=== PATIENT | male | born 1975 | race Native Hawaiian/Other Pacific Islander ===

== ENCOUNTER 2018-07-04 13:55 | Observation (INO) | payer MEDICAID ==
--- NOTE | 2018-07-04 14:34 | C.PDOC ---
History Of Present Illness 42 y/o male presents to ED requesting detox from heroin. States last use was last night intravenously. He denies any physical complaints at this time. Time Seen by Provider: 07/04/18 14:13 Chief Complaint (Nursing): Substance Abuse History Per: Patient History/Exam Limitations: no limitations Onset/Duration Of Symptoms: Days Current Symptoms Are (Timing): Still Present Past Medical History Reviewed: Historical Data, Nursing Documentation, Vital Signs Vital Signs: Last Vital Signs Temp 99.1 F 07/04/18 13:59 Pulse 88 07/04/18 13:59 Resp 20 07/04/18 13:59 BP 107/70 07/04/18 13:59 Pulse Ox 97 07/04/18 13:59 Primary Care Provider: Mel Gordon - Medical History PMH: HIV (about 10 years ago), Schizophrenia Denies: Diabetes, Hepatitis, HTN, Seizures, Sexually Transmitted Disease Family History: States: No Known Family Hx - Social History Hx Alcohol Use: No Hx Substance Use: Yes (Heroin) Review Of Systems Constitutional: Negative for: Fever, Chills Gastrointestinal: Negative for: Vomiting Psych: Positive for: Other (heroin use). Negative for: Psychosis, Suicidal ideation Physical Exam - Physical Exam Appears: Non-toxic, No Acute Distress, Unkempt Skin: Warm, Dry Head: Normacephalic Eye(s): bilateral: Normal Inspection Oral Mucosa: Moist Neck: Supple Cardiovascular: Rhythm Regular, No Murmur Respiratory: Normal Breath Sounds, No Rales, No Rhonchi, No Wheezing Extremity: Other (track crow to left forearm) Extremity: Bilateral: Normal ROM Neurological/Psych: Oriented x3, Normal Speech ED Course And Treatment - Laboratory Results Result Diagrams: 07/04/18 14:51 07/04/18 14:51 O2 Sat by Pulse Oximetry: 97 (RA) Pulse Ox Interpretation: Normal Medical Decision Making Medical Decision Making: Impression: Heroin abuse, request detox Plan: --Labs --UA Progress: All labs reviewed and unremarkable. UDS +opiates. 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 - Scribe Statement The provider has reviewed the documentation as recorded by the Scribe Kaice Obando All medical record entries made by the Adrienneibe were at my direction and personally dictated by me. I have reviewed the chart and agree that the record accurately reflects my personal performance of the history, physical exam, medical decision making, and the department course for this patient. I have also personally directed, reviewed, and agree with the discharge instructions and disposition. Decision To Admit - Pt Status Changed To: Hospital Disposition Of: Observation - . Bed Request Type: Detox Admitting Physician: Derrek Lucas Patient Diagnosis: Schizophrenia, Opiate abuse, continuous
[2018-07-04 14:57] LABS: BASO % 0.5 % (0.0-2.0); EOS # 0.1 K/uL (0.0-0.7); EOS % 2.3 % (0.0-4.0); HEMOGLOBIN 13.8 g/dL (12.0-18.0); LYMPH # 2.1 K/uL (1.0-4.3); LYMPH % 32.1 % (20.0-40.0); MEAN CELL VOLUME 88.3 fL (80.0-94.0); MEAN CORPUSCULAR HEMOGLOBIN 31.3 pg (27.0-31.0); MEAN CORPUSCULAR HGB CONC 35.4 g/dL (33.0-37.0); MEAN PLATELET VOLUME 7.7 fL (7.2-11.7); MONO # 0.6 K/uL (0.0-0.8); NEUT # 3.6 K/uL (1.8-7.0); NEUT % 56.1 % (50.0-75.0); RBC 4.41 Mil/uL (4.40-5.90); RED CELL DISTRIBUTION WIDTH 13.3 % (11.5-14.5); WHITE BLOOD COUNT 6.5 K/uL (4.8-10.8)
[2018-07-04 15:10] LABS: URINE BILIRUBIN NEGATIVE (NEGATIVE); URINE BLOOD NEGATIVE (NEGATIVE); URINE CLARITY Clear (Clear); URINE COLOR Yellow (YELLOW); URINE GLUCOSE (UA) NORMAL (Normal); URINE LEUKOCYTE ESTERASE TRACE Leu/uL (Negative); URINE PROTEIN NEGATIVE (NEGATIVE)
[2018-07-04 15:30] LABS: BLOOD UREA NITROGEN 16 mg/dL (9-20)
[2018-07-04 15:31] LABS: ALB/GLOB RATIO 1.4 (1.0-2.1); ALBUMIN 4.3 g/dL (3.5-5.0); ALT/SGPT 28 U/L (21-72); AST/SGOT 39 U/L (17-59); CALCIUM 9.7 mg/dl (8.6-10.4); GFR NON-AFRICAN AMERICAN > 60
[2018-07-04 15:32] LABS: BARBITURATES, UR NEGATIVE (NEGATIVE); BENZODIAZEPINES, UR NEGATIVE (NEGATIVE); OPIATES, UR POSITIVE (NEGATIVE); PHENCYCLIDINE, UR NEGATIVE (NEGATIVE)
[2018-07-04 18:19] VITALS: RESP 18
[2018-07-04] MEDS ORDERED: Benzocaine/Menthol (Cepacol) Lozenge PO PRN (18:32)
[2018-07-04] MEDS ORDERED: Aluminum Hydroxide/Magnesium Hydroxide Susp (30 mL) PO PRN (18:32)
--- NOTE | 2018-07-04 19:06 | PCM.BM ---
Treatment Plan Problems - Problems identified on initial assessmt Denial Date Initiated: 07/04/18 Time Initiated: 19:05 Assessment reference: NA Status: Active Defensive Coping Date Initiated: 07/04/18 Time Initiated: 19:05 Assessment reference: NA Status: Active Hopelessnes Date Initiated: 07/04/18 Time Initiated: 19:06 Assessment reference: NA Status: Active Treatment assets and liabiliti Patient Assests: cooperative, negotiates basic needs Patient Liabilities: substance abuse - Milieu Protocol Maintain good personal hygiene: daily Encourage regular showers, daily Remind patient to perform daily oral care, daily Assist patient to perform ADL's Conduct patient checks and document Observation sheet: Q15 minutes Maintain personal safety: every shift Educate patient to report safety concerns to staff, every shift Monitor environment for contraband/sharps Medication safety: Monitor for expected outcome, potential side effects: every shift, Assess barriers to learning: every shift, Assess readiness for medication education: every shift
[2018-07-05 05:03] VITALS: BP 123/71; PULSE 96; TEMP 97.8; O2SAT 95
--- NOTE | 2018-07-05 07:39 | PCM.PSYCH ---
Initial Psychiatric Evaluation - Initial Psychiatric Evaluation Type of Admission: Voluntary Legal Status: Capacity Chief Complaint (in patient's own words): I came here to get help. History of Present Illness and Precipitating Events: Pt is a 42 year old male self referred to [facility] seeking heroin detox. Pt reports his last use was today at 4am with daily use of 6-10 bags IV. Pt denies current withdrawal symptoms stating it will take "a couple of hours". Pt reports hx of HIV and Hep C and psychiatric hx of schizophrenia. Pt reports compliance with medication. Pt appears to be paranoid and a poor historian. Pt reports poor sleep roughly 6 hours a night and states he at times does have appetite disturbance. Pt denies any current S/H/Is. Pt denies hx of same. Pt appears to be minimizing his use and psychiatric symptoms. Pt's hygiene appears to be poor. Hands are very soiled and was asked to go to the restroom to wash hands. Current Medications: Active Medications Generic Name Dose Route Start Last Admin Trade Name Freq PRN Reason Stop Dose Admin Abacavir/Lamivudine 1 tab 07/05/18 10:00 Epzicom PO DAILY GETACHEW Protocol Acetaminophen 650 mg 07/04/18 18:32 Tylenol 325mg Tab PO Q4H PRN Fever greater than 101 F Al Hydrox/Mg Hydrox/Simethicone 30 ml 07/04/18 18:32 Maalox 30 Ml PO TID PRN Indigestion / Heartburn Benzocaine/Menthol 1 jorje 07/04/18 18:32 Cepacol Sore Throat PO QID PRN Sore Throat Benztropine Mesylate 0.5 mg 07/04/18 18:45 07/04/18 21:24 Cogentin PO Not Given BID GETACHEW Clonidine HCl 0.1 mg 07/04/18 18:32 Catapres PO Q4 PRN COWS Score More or Equal to 5 Dicyclomine HCl 10 mg 07/04/18 18:32 Bentyl PO Q6 PRN Muscle spasm Hydroxyzine HCl 25 mg 07/04/18 18:35 07/05/18 02:23 Atarax PO 25 mg Q6 PRN Administration Anxiety Loperamide HCl 2 mg 07/04/18 18:32 Imodium PO Q8 PRN Diarrhea Ondansetron HCl 4 mg 07/04/18 18:32 Zofran Tab PO Q8 PRN Nausea/Vomiting Pseudoephedrine HCl 60 mg 07/04/18 18:32 Sudafed Tab PO QID PRN Nasal/Sinus Congestion Risperidone 3 mg 07/05/18 10:00 Risperdal Tab PO BID GETACHEW Trazodone HCl 50 mg 07/05/18 02:21 Desyrel PO HS PRN Insomnia Past Psychiatric History - Past Psychiatric History Previous Treatment History: Inpatient Pertinent Medical Hx (Current Medical&Sleep Prob, Allergies): Allergies Allergy/AdvReac Type Severity Reaction Status Date / Time No Known Allergies Allergy Unverified 07/04/18 14:01 Abacavir Sulfate/Lamivudine [Epzicom] DAILY 07/04/18 Benztropine [Benztropine Mesylate] 0.5 mg PO BID 07/04/18 Dolutegravir Sodium [Tivicay] 50 PO DAILY 07/04/18 risperiDONE [RisperDAL Tab] 3 mg PO BID 07/04/18 Review of Systems - Review of Systems All systems: reviewed and no additional remarkable complaints except - Psychiatric Psychiatric: Anxiety, Irritability, Paranoia Mental Status Examination - Personal Presentation Personal Presentation: Looks stated age - Affect Affect: Constricted - Motor Activity Motor Activity: Calm - Reliability in Providing Information Reliability in Providing Information: Fair - Speech Speech: Organized - Mood Mood: Anxious - Formal Thought Process Formal Thought Process: Paranoia - Hallucinations/Delusions Delusions: Persecution - Obsessions/Compulsions Obsessions: No Compulsions: No - Cognitive Functions Orientation: Person, Place, Situation, Time Sensorium: Alert Attention/Concentration: Attentive Abstract Thinking: [place] Estimate of Intelligence: Below average Judgement: Imparied, as evidence by: Poor judgement, Imparied, as evidence by: Lack of insight into illness - Risk Risk: Withdrawal, Diminished functioning - Limitations Limitations: Living alone DSM 5 DX - DSM 5 DSM 5 Diagnosis: Opioid use disorder severe Opioid withdrawal Schizophrenia paranoid type continuous - Recommended/Plan of Treatment Treatment Recommendations and Plan of Treatment: Opioid use disorder severe Opioid withdrawal Schizophrenia paranoid type continuous CBT Psychoeducation Supportive therapy and group therapy Methadone taper-for opiate withdrawal Withdrawal medications Trazodone for insomnia Hydroxyzine for anxiety Continuation of home medications
--- NOTE | 2018-07-05 07:41 | PCM.PYCHDC ---
Mental Status Examination - Mental Status Examination Orientation: Person, Place, Situation, Time Discharge Summary - Discharge Note Reason for Hospitalization: Pt is a 42 year old male self referred to [facility] seeking heroin detox. Pt reports his last use was today at 4am with daily use of 6-10 bags IV. Pt denies current withdrawal symptoms stating it will take "a couple of hours". Pt reports hx of HIV and Hep C and psychiatric hx of schizophrenia. Pt reports compliance with medication. Pt appears to be paranoid and a poor historian. Pt reports poor sleep roughly 6 hours a night and states he at times does have appetite disturbance. Pt denies any current S/H/Is. Pt denies hx of same. Pt appears to be minimizing his use and psychiatric symptoms. Pt's hygiene appears to be poor. Hands are very soiled and was asked to go to the restroom to wash hands. [ End ] Laboratory Data: Abnormal Lab Results 07/04/18 07/04/18 07/04/18 14:51 14:51 14:57 WBC 6.5 RBC 4.41 Hgb 13.8 Hct 39.0 MCV 88.3 MCH 31.3 H MCHC 35.4 RDW 13.3 Plt Count 192 MPV 7.7 Neut % (Auto) 56.1 Lymph % (Auto) 32.1 [place] % (Auto) 9.0 Eos % (Auto) 2.3 Baso % (Auto) 0.5 Neut # (Auto) 3.6 Lymph # (Auto) 2.1 [place] # (Auto) 0.6 Eos # (Auto) 0.1 Baso # (Auto) 0.0 Sodium 136 Potassium 4.0 Chloride 100 Carbon Dioxide 26 Anion Gap 14 BUN 16 Creatinine 1.1 Est GFR ( Amer) > 60 Est GFR (Non-Af Amer) > 60 Random Glucose 74 L Calcium 9.7 Phosphorus 4.2 Magnesium 2.1 Total Bilirubin 0.7 AST 39 ALT 28 Alkaline Phosphatase 75 Total Protein 7.4 Albumin 4.3 Globulin 3.1 Albumin/Globulin Ratio 1.4 Urine Color Yellow Urine Clarity Clear Urine pH 5.0 Ur Specific [place] 1.023 Urine Protein Negative Urine Glucose (UA) Normal Urine Ketones Negative Urine Blood Negative Urine Nitrate Negative Urine Bilirubin Negative Urine Urobilinogen 2.0 Ur Leukocyte Esterase Trace Urine WBC (Auto) < 1 Urine RBC (Auto) 2 Urine Opiates Screen Urine Methadone Screen Ur Barbiturates Screen Ur Phencyclidine Scrn Ur Amphetamines Screen U Benzodiazepines Scrn U Oth Cocaine Metabols U Cannabinoids Screen Alcohol, Quantitative < 10 07/04/18 14:57 WBC RBC Hgb Hct MCV MCH MCHC RDW Plt Count MPV Neut % (Auto) Lymph % (Auto) [place] % (Auto) Eos % (Auto) Baso % (Auto) Neut # (Auto) Lymph # (Auto) [place] # (Auto) Eos # (Auto) Baso # (Auto) Sodium Potassium Chloride Carbon Dioxide Anion Gap BUN Creatinine Est GFR ( Amer) Est GFR (Non-Af Amer) Random Glucose Calcium Phosphorus Magnesium Total Bilirubin AST ALT Alkaline Phosphatase Total Protein Albumin Globulin Albumin/Globulin Ratio Urine Color Urine Clarity Urine pH Ur Specific [place] Urine Protein Urine Glucose (UA) Urine Ketones Urine Blood Urine Nitrate Urine Bilirubin Urine Urobilinogen Ur Leukocyte Esterase Urine WBC (Auto) Urine RBC (Auto) Urine Opiates Screen Positive H Urine Methadone Screen Negative Ur Barbiturates Screen Negative Ur Phencyclidine Scrn Negative Ur Amphetamines Screen Negative U Benzodiazepines Scrn Negative U Oth Cocaine Metabols Negative U Cannabinoids Screen Negative Alcohol, Quantitative Consultations:: List each consultation separately and include: 1. Reason for request. 2. Findings. 3. Follow-up Summary of Hospital Course include:: 1. Description of specific treatment plan utilized for patients during their course of treatmen. 2. Summarize the time- course for resolution of acute symptoms and/or regressed behaviors. 3. Describe issues identified and worked on during hospitalization. 4. Describe medication utilized. 5. Describe medical problems identified and treated. 6. Reassessment of suicide risk Summary of Hospital Course: Pt is a 42 year old male self referred to [facility] seeking heroin detox. Pt reports his last use was today at 4am with daily use of 6-10 bags IV. Pt denies current withdrawal symptoms stating it will take "a couple of hours". Pt reports hx of HIV and Hep C and psychiatric hx of schizophrenia. Pt reports compliance with medication. Pt appears to be paranoid and a poor historian. Pt reports poor sleep roughly 6 hours a night and states he at times does have appetite disturbance. Pt denies any current S/H/Is. Pt denies hx of same. Pt appears to be minimizing his use and psychiatric symptoms. Pt's hygiene appears to be poor. Hands are very soiled and was asked to go to the restroom to wash hands. [ End ] - Final Diagnosis (DSM 5) Condition upon Discharge: STABLE Disposition: HOME/ ROUTINE
[2018-07-05] MEDS ORDERED: Abacavir/Lamivudine 600 mg-300 mg Tab PO SCH (10:00)
== END 2018-07-05 07:45 | disposition home or self-care (01) ==
LOC: C.ER 13:55 → C.7D 15:47
PROVIDERS: ADMIT Psychiatry & Neurology Psychiatry; ATTEND Psychiatry & Neurology Psychiatry
DX: F20.0 Paranoid schizophrenia (principal); F11.23 Opioid dependence with withdrawal; B20 Human immunodeficiency virus [HIV] disease; Z86.19 Personal history of other infectious and parasitic diseases; Z79.899 Other long term (current) drug therapy
CPT/HCPCS: 80053; 80320; 80324; 80345; 80346; 80349; 80353; 80358; 80361; 81001; 83735; 83992; 84100; 85025; 99283; G0378